=== PATIENT | male | born 1955 | race Caucasian/White ===

== ENCOUNTER → 2017-02-11 | Outpatient (CLI) | payer OTHER | END | disposition home or self-care (01) | LOC: RAD 08:04 | PROVIDERS: ATTEND Internal Medicine Cardiovascular Disease | DX: J90 Pleural effusion, not elsewhere classified (principal); I08.2 Rheumatic disorders of both aortic and tricuspid valves; E78.5 Hyperlipidemia, unspecified; I10 Essential (primary) hypertension; F17.200 Nicotine dependence, unspecified, uncomplicated; I73.9 Peripheral vascular disease, unspecified | CPT/HCPCS: 78452; 93017; 93306; A9502 ==

== ENCOUNTER 2017-04-13 05:27 | Day surgery (SDC) | payer OTHER ==
[~2017-04-13] VITALS: Ht 160 cm; Wt 65.7 kg
[2017-04-13] MEDS ORDERED: D5%-0.45% NACL 1,000 ML IV SCH (06:21)
[2017-04-13 06:50] LABS: BASOPHILS # (AUTO) 0.03 x10^3/uL (0-0.1); BASOPHILS % (AUTO) 1 % (0-1); EOSINOPHILS # (AUTO) 0.18 x10^3/uL (0-0.4); EOSINOPHILS % (AUTO) 3 % (1-7); LYMPHOCYTES # (AUTO) 1.45 x10^3/uL (1-3.4); LYMPHOCYTES % (AUTO) 22 % (22-44); MD NO; MEAN CORPUSCULAR HEMOGLOBIN 28.7 pg (27.5-34.5); MEAN CORPUSCULAR HGB CONC 32.7 g/dL (33.2-36.2); MEAN CORPUSCULAR VOLUME 87.7 fL (81-97); MEAN PLATELET VOLUME 8.5 fL (7.4-10.4); MONOCYTES # (AUTO) 0.53 x10^3/uL (0.2-0.8); MONOCYTES % (AUTO) 8 % (2-9); NEUTROPHILS # (AUTO) 4.47 x10^3/uL (1.8-6.8); NEUTROPHILS % (AUTO) 67 % (42-75); PLATELET COUNT 226 x10^3/uL (130-400); RED BLOOD COUNT 4.63 x10^6/uL (4.38-5.82); RED CELL DISTRIBUTION WIDTH 13.9 % (9.4-14.8)
[2017-04-13 06:52] VITALS: BP 145/86
[2017-04-13] MEDS ORDERED: DOXA8TAB63 PO (06:58)
[2017-04-13] MEDS ORDERED: AMLO10TA2 PO (06:58)
[2017-04-13] MEDS ORDERED: OMEP-110 PO (06:58)
[2017-04-13] MEDS ORDERED: LISI40TA PO (06:58)
[2017-04-13] MEDS ORDERED: ATOR10TA9 PO (06:58)
[2017-04-13] MEDS ORDERED: ASPI-650 PO (06:59)
[2017-04-13 07:01] LABS: ANION GAP 8 mmol/L (5-15); CALCIUM 8.4 mg/dL (8.5-10.1); CHLORIDE 111 mmol/L (98-107); CREATININE 0.91 mg/dL (0.7-1.3)
[2017-04-13] MEDS ORDERED: NITROGLYCERIN 5 MG/ML, 10ML ONE (07:15)
[2017-04-13] MEDS ORDERED: HEPARIN 1,000 UNITS/ML, 10ML ONE (07:15)
[2017-04-13] MEDS ORDERED: FLUMAZENIL 0.1 MG/1 ML, 5ML ONE (07:15)
[2017-04-13] MEDS ORDERED: FENTANYL PF 100 MCG/2ML ONE (07:15)
[2017-04-13] MEDS ORDERED: MIDAZOLAM 1 MG/ML, 2ML ONE (07:15)
[2017-04-13] MEDS ORDERED: PROTAMINE SULFATE 10 MG/ML, 25ML ONE (07:15)
[2017-04-13] MEDS ORDERED: NALOXONE 1 MG/ML, 2ML ONE (07:15)
[2017-04-13] MEDS ORDERED: LIDOCAINE 2%, 20ML ONE (07:59)
[2017-04-13] MEDS ORDERED: VISIPAQUE 270 MG/ML, 150ML BOTTLE ONE (13:30)
== END 2017-04-13 14:00 ==
LOC: OUT 05:27
DX: I70.213 Atherosclerosis of native arteries of extremities with intermittent claudication, bilateral legs (principal); E78.00 Pure hypercholesterolemia, unspecified; I10 Essential (primary) hypertension; E78.5 Hyperlipidemia, unspecified; F17.210 Nicotine dependence, cigarettes, uncomplicated
CPT/HCPCS: 36415; 37221; 75625; 75716; 80048; 85025; 99156; 99157; C1725; C1760; C1769; C1876; C1894; J1644; J2250; J3010; J3490; Q9966; J2720; J2310

== ENCOUNTER 2017-07-13 11:34 | Inpatient (IN) | payer OTHER ==
[~2017-07-13] VITALS: Ht 160 cm; Wt 63.1 kg
[~2017-07-13 11:34] MED LIST: AMLO10TA2 PO; ASPI-650 PO; ATOR10TA9 PO; DOXA8TAB63 PO; LISI40TA PO; OMEP-110 PO
[2017-07-13 13:05] LABS: BASOPHILS # (AUTO) 0.04 x10^3/uL (0-0.1); BASOPHILS % (AUTO) 1 % (0-1); EOSINOPHILS # (AUTO) 0.07 x10^3/uL (0-0.4); EOSINOPHILS % (AUTO) 1 % (1-7); LYMPHOCYTES # (AUTO) 1.34 x10^3/uL (1-3.4); LYMPHOCYTES % (AUTO) 19 % (22-44); MD NO; MEAN CORPUSCULAR HEMOGLOBIN 29.3 pg (27.5-34.5); MEAN CORPUSCULAR VOLUME 86.3 fL (81-97); MEAN PLATELET VOLUME 8.2 fL (7.4-10.4); MONOCYTES # (AUTO) 0.57 x10^3/uL (0.2-0.8); MONOCYTES % (AUTO) 8 % (2-9); NEUTROPHILS % (AUTO) 71 % (42-75); PLATELET COUNT 197 x10^3/uL (130-400); RED BLOOD COUNT 4.79 x10^6/uL (4.38-5.82); RED CELL DISTRIBUTION WIDTH 14.5 % (9.4-14.8)
[2017-07-13 13:18] LABS: ALBUMIN 3.7 g/dL (3.4-5.0); ANION GAP 9 mmol/L (5-15); CALCIUM 8.1 mg/dL (8.5-10.1); CHLORIDE 110 mmol/L (98-107); CREATININE 0.84 mg/dL (0.7-1.3)
[2017-07-13 13:23] LABS: TROPONIN I 0.391 ng/mL (0.000-0.045)
[2017-07-13] MEDS ORDERED: NITROGLYCERIN OINT 2%, 1GM TP ONE ×2 (13:37→14:00)
[2017-07-13] MEDS ORDERED: OMNIPAQUE 350 MG/ML, 100ML BOTTLE ONE (13:48)
[2017-07-13] MEDS ORDERED: ONDANSETRON ODT 4 MG PO PRN (14:30)
[2017-07-13] MEDS ORDERED: ONDANSETRON 2MG/ML, 2ML IVPush PRN (14:30)
[2017-07-13] MEDS ORDERED: LABETALOL 5MG/ML, 20ML IVPush PRN (14:30)
[2017-07-13] MEDS ORDERED: SODIUM CHLORIDE FLUSH 10ML SYR IVF PRN (14:30)
[2017-07-13] MEDS ORDERED: ENOXAPARIN 40 MG/0.4 ML SQ SCH (14:30)
[2017-07-13 15:05] VITALS: BP 160/87
[2017-07-13] MEDS ORDERED: ACETAMINOPHEN 325 MG TABLET ONE (16:11)
[2017-07-13] MEDS: ACETAMINOPHEN 325 MG TABLET PO PRN ×2 (16:13→21:00)
[2017-07-13 17:41] LABS: FREE T4 (FREE THYROXINE) 0.88 ng/dL (0.76-1.46)
[2017-07-13 18:52] VITALS: BP 124/71
[2017-07-13] MEDS ORDERED: HEPARIN 5,000 UNITS/ML, 1ML IV ONE (20:30)
[2017-07-13] MEDS ORDERED: HEPARIN 25,000 UNITS/500ML PMX 500 ML IV PRN (20:30)
[2017-07-13] MEDS ORDERED: HEPARIN 5,000 UNITS/ML, 1ML IV PRN (20:30)
[2017-07-13] MEDS ORDERED: ATORVASTATIN 10 MG TABLET PO SCH (21:00)
[2017-07-14 01:50] VITALS: BP 130/77
[2017-07-14] MEDS ORDERED: NITROGLYCERIN 0.4 MG BOTTLE (25 TABS) SL PRN (02:00)
[2017-07-14] MEDS ORDERED: NITROGLYCERIN 0.4 MG/SPRAY SL PRN (02:00)
[2017-07-14 03:33] LABS: BASOPHILS # (AUTO) 0.03 x10^3/uL (0-0.1); BASOPHILS % (AUTO) 0 % (0-1); EOSINOPHILS # (AUTO) 0.13 x10^3/uL (0-0.4); EOSINOPHILS % (AUTO) 1 % (1-7); LYMPHOCYTES # (AUTO) 1.73 x10^3/uL (1-3.4); LYMPHOCYTES % (AUTO) 18 % (22-44); MD NO; MEAN CORPUSCULAR HEMOGLOBIN 29.2 pg (27.5-34.5); MEAN CORPUSCULAR HGB CONC 33.5 g/dL (33.2-36.2); MEAN PLATELET VOLUME 8.7 fL (7.4-10.4); MONOCYTES # (AUTO) 0.69 x10^3/uL (0.2-0.8); MONOCYTES % (AUTO) 7 % (2-9); NEUTROPHILS % (AUTO) 74 % (42-75); PLATELET COUNT 193 x10^3/uL (130-400); RED BLOOD COUNT 4.71 x10^6/uL (4.38-5.82); RED CELL DISTRIBUTION WIDTH 15.2 % (9.4-14.8)
[2017-07-14 03:38] LABS: ALANINE AMINOTRANSFERASE 33 U/L (12-78); ALBUMIN 3.5 g/dL (3.4-5.0); ANION GAP 10 mmol/L (5-15); CALCIUM 8.3 mg/dL (8.5-10.1); CHLORIDE 108 mmol/L (98-107); CHOLESTEROL, TOTAL 154 mg/dL (140-239); TRIGLYCERIDES 87 mg/dL (50-200); VLDL CHOLESTEROL 17 mg/dL (0-25)
[2017-07-14 03:48] LABS: ALKALINE PHOSPHATASE 60 U/L (45-117); BILIRUBIN,TOTAL 0.4 mg/dL (0.2-1.0); CHOL/HDL RATIO 3.1; HDL CHOL % 32 % (26-37); HDL CHOLESTEROL (DIRECT) 49 mg/dL (40-60); LDL CHOLESTEROL,CALCULATED 88 mg/dL (54-169); LDL/HDL RATIO 1.8 (0.5-3.0); THYROID STIMULATING HORMONE 0.977 mIU/L (0.358-3.740); TOTAL PROTEIN 6.4 g/dL (6.4-8.2)
[2017-07-14 07:05] VITALS: BP 159/87
[2017-07-14] MEDS: ASPIRIN 325 MG TABLET EC PO SCH (08:57)
[2017-07-14] MEDS: ACETAMINOPHEN 325 MG TABLET PO PRN (08:58)
[2017-07-14] MEDS: OMEPRAZOLE 20 MG CAPSULE.DR PO SCH (08:58)
[2017-07-14] MEDS: SENNA/DOCUSATE TABLET PO SCH (08:58)
[2017-07-14] MEDS ORDERED: AMLODIPINE 5 MG TABLET PO SCH (09:00)
[2017-07-14] MEDS ORDERED: LISINOPRIL 20 MG TABLET PO SCH (09:00)
[2017-07-14] MEDS ORDERED: DOXAZOSIN 2MG TABLET PO SCH (09:00)
[2017-07-14] MEDS ORDERED: FENTANYL PF 100 MCG/2ML ONE (10:23)
[2017-07-14] MEDS ORDERED: MIDAZOLAM 1 MG/ML, 5ML ONE (10:24)
[2017-07-14] MEDS ORDERED: TICAGRELOR 90 MG TABLET ONE (10:24)
[2017-07-14] MEDS ORDERED: NITROGLYCERIN 5 MG/ML, 10ML ONE (10:24)
[2017-07-14] MEDS ORDERED: VERAPAMIL 2.5 MG/ML, 2ML ONE (10:24)
[2017-07-14] MEDS ORDERED: BIVALIRUDIN 250 MG ONE (10:24)
[2017-07-14] MEDS ORDERED: HEPARIN 1,000 UNITS/ML, 10ML ONE (10:24)
[2017-07-14] MEDS ORDERED: LIDOCAINE 2%, 2ML ONE (10:28)
[2017-07-14] MEDS ORDERED: DIPHENHYDRAMINE 50 MG/ML, 1ML ONE (10:48)
[2017-07-14] MEDS: SODIUM CHLORIDE 0.9% 1,000 ML IV SCH ×2 (12:00→19:15)
[2017-07-14] MEDS: MORPHINE SULFATE 4 MG/ML, 1ML IVPush PRN ×2 (13:22→23:11)
[2017-07-14 14:00] VITALS: BP 135/79
[2017-07-14] MEDS ORDERED: METOPROLOL TARTRATE 25 MG TABLET PO ONE (15:30)
[2017-07-14] MEDS ORDERED: INSULIN LISPRO 100 UNITS/ML, PEN SQ-INSULIN SCH (15:30)
[2017-07-14 15:50] LABS: BASOPHILS # (AUTO) 0.06 x10^3/uL (0-0.1); BASOPHILS % (AUTO) 1 % (0-1); EOSINOPHILS # (AUTO) 0.05 x10^3/uL (0-0.4); EOSINOPHILS % (AUTO) 1 % (1-7); LYMPHOCYTES % (AUTO) 14 % (22-44); MD NO; MEAN CORPUSCULAR HEMOGLOBIN 29.5 pg (27.5-34.5); MEAN CORPUSCULAR HGB CONC 34.1 g/dL (33.2-36.2); MEAN CORPUSCULAR VOLUME 86.5 fL (81-97); MEAN PLATELET VOLUME 8.1 fL (7.4-10.4); MONOCYTES % (AUTO) 8 % (2-9); NEUTROPHILS # (AUTO) 7.21 x10^3/uL (1.8-6.8); NEUTROPHILS % (AUTO) 77 % (42-75); PLATELET COUNT 193 x10^3/uL (130-400); RED BLOOD COUNT 4.78 x10^6/uL (4.38-5.82); RED CELL DISTRIBUTION WIDTH 14.6 % (9.4-14.8)
[2017-07-14 15:57] LABS: INTERNATIONAL NORMALIZED RATIO 0.94 (0.93-1.1); PROTHROMBIN TIME 9.8 Seconds (9.6-11.5)
[2017-07-14 16:01] LABS: ALANINE AMINOTRANSFERASE 35 U/L (12-78); ALBUMIN 3.5 g/dL (3.4-5.0); ANION GAP 10 mmol/L (5-15); CALCIUM 8.7 mg/dL (8.5-10.1); CHLORIDE 105 mmol/L (98-107); CREATININE 0.99 mg/dL (0.7-1.3)
[2017-07-14 16:04] LABS: ALKALINE PHOSPHATASE 68 U/L (45-117); BILIRUBIN,TOTAL 0.6 mg/dL (0.2-1.0); TOTAL PROTEIN 6.7 g/dL (6.4-8.2)
[2017-07-14 17:11] LABS: HEMOGLOBIN A1C 6.4 % (4.2-6.3)
[2017-07-14 19:01] VITALS: BP 117/76
[2017-07-14] MEDS: SODIUM CHLORIDE FLUSH 10ML SYR IVF SCH (21:00)
[2017-07-14] MEDS: MUPIROCIN OINT 2%, 22GM TP SCH (23:09)
[2017-07-14] MEDS: ATORVASTATIN 80 MG TABLET PO SCH (23:10)
[2017-07-14] MEDS: CHLORHEXIDINE 15 ML BOTTLE MM PRN (23:11)
[2017-07-15 00:38] VITALS: BP 118/73
[2017-07-15] MEDS: SODIUM CHLORIDE 0.9% 1,000 ML IV SCH ×3 (03:15→19:15)
[2017-07-15 05:20] LABS: MICROSCOPIC NOT IND
[2017-07-15 05:23] LABS: BASOPHILS # (AUTO) 0.07 x10^3/uL (0-0.1); BASOPHILS % (AUTO) 1 % (0-1); EOSINOPHILS # (AUTO) 0.06 x10^3/uL (0-0.4); EOSINOPHILS % (AUTO) 1 % (1-7); LYMPHOCYTES # (AUTO) 1.78 x10^3/uL (1-3.4); LYMPHOCYTES % (AUTO) 16 % (22-44); MD NO; MEAN CORPUSCULAR HEMOGLOBIN 29.2 pg (27.5-34.5); MEAN CORPUSCULAR HGB CONC 33.8 g/dL (33.2-36.2); MEAN CORPUSCULAR VOLUME 86.2 fL (81-97); MEAN PLATELET VOLUME 8.1 fL (7.4-10.4); MONOCYTES # (AUTO) 1.05 x10^3/uL (0.2-0.8); MONOCYTES % (AUTO) 10 % (2-9); NEUTROPHILS # (AUTO) 8.08 x10^3/uL (1.8-6.8); NEUTROPHILS % (AUTO) 73 % (42-75); PLATELET COUNT 184 x10^3/uL (130-400); RED BLOOD COUNT 4.82 x10^6/uL (4.38-5.82); RED CELL DISTRIBUTION WIDTH 14.7 % (9.4-14.8)
[2017-07-15 05:29] LABS: ALBUMIN 3.5 g/dL (3.4-5.0); ANION GAP 9 mmol/L (5-15); CALCIUM 8.8 mg/dL (8.5-10.1); CHLORIDE 104 mmol/L (98-107)
[2017-07-15 05:32] LABS: ALANINE AMINOTRANSFERASE 32 U/L (12-78); ALKALINE PHOSPHATASE 68 U/L (45-117); CREATININE 1.25 mg/dL (0.7-1.3)
[2017-07-15] MEDS ORDERED: METOPROLOL TARTRATE 25 MG TABLET PO ONE (06:00)
[2017-07-15] MEDS: CHLORHEXIDINE 15 ML BOTTLE MM PRN (06:07)
[2017-07-15] MEDS ORDERED: CEFUROXIME 1.5 GM in SODIUM CHLORIDE 0.9% 50 ML IVPB PRN (07:30)
[2017-07-15] MEDS ORDERED: PHENYLEPHRINE 10 MG in SODIUM CHLORIDE 0.9% 249 ML IV PRN ×2 (07:30→11:22)
[2017-07-15] MEDS ORDERED: EPINEPHRINE 2 MG in SODIUM CHLORIDE 0.9% 248 ML IV SCH (07:30)
[2017-07-15] MEDS ORDERED: POTASSIUM CHLORIDE 80 MEQ, SODIUM BICARBONATE 8.4% 10 MEQ, MAGNESIUM SULFATE 0.5 GM, LI... IV PRN (07:30)
[2017-07-15] MEDS ORDERED: VANCOMYCIN 900 MG in SODIUM CHLORIDE 0.9% 100 ML IVPB PRN (07:30)
[2017-07-15] MEDS ORDERED: DEXMEDETOMIDINE 200 MCG in SODIUM CHLORIDE 0.9% 48 ML IV SCH (07:30)
[2017-07-15] MEDS ORDERED: MANNITOL PMX 20% 500 ML IVPB PRN (07:30)
[2017-07-15] MEDS ORDERED: REGULAR INSULIN 62.5 UNITS in SODIUM CHLORIDE 0.9% 249.375 ML IV PRN ×2 (07:30→11:22)
[2017-07-15] MEDS ORDERED: HEPARIN 1,000 UNITS/ML, 10ML ONE (07:31)
[2017-07-15] MEDS ORDERED: PAPAVERINE 30 MG/ML, 2ML ONE (07:31)
[2017-07-15] MEDS ORDERED: MIDAZOLAM 10MG/2 ML ONE (07:34)
[2017-07-15] MEDS ORDERED: FENTANYL PF 250 MCG/5ML ONE ×4 (07:34→07:35)
[2017-07-15] MEDS ORDERED: CALCIUM CHLORIDE 10%, 10ML SYR ONE (07:35)
[2017-07-15] MEDS ORDERED: TRANEXAMIC ACID 100 MG/ML, 10ML ONE ×6 (07:35→07:38)
[2017-07-15] MEDS ORDERED: PHENYLEPHRINE 10 MG/ML ONE (07:35)
[2017-07-15] MEDS ORDERED: EPINEPHRINE 1 MG/ML, 1ML ONE (07:35)
[2017-07-15] MEDS ORDERED: ROCURONIUM 10MG/ML,5ML ONE ×2 (07:35→07:38)
[2017-07-15] MEDS ORDERED: PROPOFOL 10 MG/ML, 20ML ONE (07:35)
[2017-07-15] MEDS ORDERED: ALBUMIN HUMAN 5% 500 ML IV PRN (08:00)
[2017-07-15] MEDS: OMEPRAZOLE 20 MG CAPSULE.DR PO SCH (09:00)
[2017-07-15] MEDS: ASPIRIN 325 MG TABLET EC PO SCH (09:00)
[2017-07-15] MEDS: MUPIROCIN OINT 2%, 22GM TP SCH ×2 (09:00→21:22)
[2017-07-15] MEDS: SODIUM CHLORIDE FLUSH 10ML SYR IVF SCH ×3 (09:00→20:16)
[2017-07-15] MEDS: SENNA/DOCUSATE TABLET PO SCH (09:00)
[2017-07-15] MEDS: DOCUSATE 100 MG CAPSULE PO SCH ×2 (09:00→20:14)
[2017-07-15] MEDS ORDERED: PROTAMINE SULFATE 10 MG/ML, 25ML ONE (09:50)
[2017-07-15] MEDS ORDERED: LIDOCAINE 2% 100MG/5ML SYRINGE ONE (11:06)
[2017-07-15] MEDS ORDERED: HEPARIN 1,000 UNITS/ML, 30ML ONE (11:06)
[2017-07-15] MEDS ORDERED: SODIUM BICARB 8.4%, 50ML SYRINGE ONE (11:06)
[2017-07-15] MEDS ORDERED: ALBUMIN HUMAN 25% 50 ML ONE (11:07)
[2017-07-15] MEDS ORDERED: SODIUM CHLORIDE 0.9% 1,000 ML IV PRN (11:22)
[2017-07-15] MEDS ORDERED: NITROGLYCERIN/D5W PMX 250 ML IV PRN (11:22)
[2017-07-15] MEDS ORDERED: VASOPRESSIN 50 UNIT in SODIUM CHLORIDE 0.9% 250 ML IV PRN (11:22)
[2017-07-15] MEDS ORDERED: DOBUTAMINE 250 MG in SODIUM CHLORIDE 0.9% 230 ML IV PRN (11:22)
[2017-07-15] MEDS ORDERED: DEXMEDETOMIDINE 200 MCG in SODIUM CHLORIDE 0.9% 48 ML IV PRN (11:22)
[2017-07-15] MEDS ORDERED: MIDAZOLAM 1 MG/ML, 5ML IVPush PRN (11:30)
[2017-07-15] MEDS: KSCALE TO 4.5 IV SCH ×3 (11:30→23:19)
[2017-07-15] MEDS ORDERED: DEXTROSE 4 GM TAB.CHEW PO PRN (11:30)
[2017-07-15] MEDS ORDERED: INSULIN REGULAR 100 UNITS/ML, 3ML VIAL IVPush PRN (11:30)
[2017-07-15] MEDS ORDERED: PROCHLORPERAZINE 5 MG/ML, 2ML IVPush PRN (11:30)
[2017-07-15] MEDS ORDERED: BISACODYL 10 MG SUPP PR PRN (11:30)
[2017-07-15] MEDS ORDERED: BISACODYL 5 MG EC TABLET PO PRN (11:30)
[2017-07-15] MEDS ORDERED: DEXTROSE 50%, 50ML SYRINGE IVPush PRN (11:30)
[2017-07-15] MEDS ORDERED: SODIUM BICARB 8.4%, 50ML SYRINGE IV PRN (11:30)
[2017-07-15] MEDS ORDERED: GLUCAGON 1 MG IM PRN (11:30)
[2017-07-15] MEDS ORDERED: LACTATED RINGERS 1,000 ML IV PRN (11:30)
[2017-07-15] MEDS ORDERED: EPINEPHRINE 2 MG in SODIUM CHLORIDE 0.9% 248 ML IV PRN (11:30)
[2017-07-15] MEDS ORDERED: ACETAMINOPHEN 650 MG SUPP PR PRN (11:30)
[2017-07-15] MEDS ORDERED: ACETAMINOPHEN 325 MG TABLET PO PRN (11:30)
[2017-07-15] MEDS ORDERED: ONDANSETRON 2MG/ML, 2ML IVPush PRN (11:30)
[2017-07-15 11:56] LABS: GLUCOSE BY BLOOD GAS ANALYZER 147 mg/dL (70-110); HEMOGLOBIN BY BLOOD GAS ANALYZ 10.7 g/dL (14.0-18.0); POTASSIUM BY BLOOD GAS ANALYZR 3.8 mmol/L (3.6-5.5)
[2017-07-15] MEDS: morphine SULFATE 10 MG/ML, 1ML IVPush PRN ×3 (12:30→23:44)
[2017-07-15] MEDS ORDERED: POTASSIUM CHLORIDE PMX 100 ML IV ONE (12:30)
[2017-07-15] MEDS: MAGNESIUM SULFATE 1 GM in SODIUM CHLORIDE 0.9% 50 ML IVPB SCH (12:53)
[2017-07-15] MEDS ORDERED: INSULIN LISPRO 100 UNITS/ML, PEN SQ-INSULIN SCH (16:00)
[2017-07-15] MEDS ORDERED: INSULIN LISPRO 100 UNITS/ML, PEN SQ-INSULIN PRN (16:00)
[2017-07-15] MEDS: HYDROcodone/APAP 5/325 TABLET PO PRN ×2 (16:22→22:53)
[2017-07-15] MEDS: OXYcodone IR 5MG TABLET PO PRN ×2 (18:09→21:28)
[2017-07-15] MEDS ORDERED: VANCOMYCIN 1,000 MG in SODIUM CHLORIDE 0.9% 250 ML IVPB SCH (20:00)
[2017-07-15] MEDS: ATORVASTATIN 80 MG TABLET PO SCH (20:14)
[2017-07-15] MEDS: VANCOMYCIN PMX 1GM/200ML 200 ML IVPB SCH (20:15)
[2017-07-15] MEDS: MUPIROCIN OINT 2%, 22GM NAS SCH (21:00)
[2017-07-16] MEDS: morphine SULFATE 10 MG/ML, 1ML IVPush PRN ×2 (01:40→06:17)
[2017-07-16 03:36] VITALS: BP 99/72
[2017-07-16 05:23] LABS: BASOPHILS # (AUTO) 0.01 x10^3/uL (0-0.1); BASOPHILS % (AUTO) 0 % (0-1); CHLORIDE 108 mmol/L (98-107); EOSINOPHILS % (AUTO) 0 % (1-7); LYMPHOCYTES # (AUTO) 0.55 x10^3/uL (1-3.4); LYMPHOCYTES % (AUTO) 6 % (22-44); MD NO; MEAN CORPUSCULAR HEMOGLOBIN 29.5 pg (27.5-34.5); MEAN CORPUSCULAR VOLUME 86.8 fL (81-97); MEAN PLATELET VOLUME 8.4 fL (7.4-10.4); MONOCYTES # (AUTO) 0.96 x10^3/uL (0.2-0.8); MONOCYTES % (AUTO) 11 % (2-9); NEUTROPHILS # (AUTO) 7.66 x10^3/uL (1.8-6.8); NEUTROPHILS % (AUTO) 83 % (42-75); PLATELET COUNT 134 x10^3/uL (130-400); RED BLOOD COUNT 3.74 x10^6/uL (4.38-5.82); RED CELL DISTRIBUTION WIDTH 15.2 % (9.4-14.8)
[2017-07-16 05:25] LABS: INTERNATIONAL NORMALIZED RATIO 1.03 (0.93-1.1); PROTHROMBIN TIME 10.7 Seconds (9.6-11.5)
[2017-07-16] MEDS: KSCALE TO 4.5 IV SCH (05:30)
[2017-07-16 05:32] LABS: ALANINE AMINOTRANSFERASE 29 U/L (12-78); ALKALINE PHOSPHATASE 45 U/L (45-117); ANION GAP 9 mmol/L (5-15); BILIRUBIN,TOTAL 0.9 mg/dL (0.2-1.0); CALCIUM 7.4 mg/dL (8.5-10.1); CREATININE 0.96 mg/dL (0.7-1.3); TOTAL PROTEIN 5.8 g/dL (6.4-8.2)
[2017-07-16] MEDS ORDERED: FUROSEMIDE 20 MG/2 ML IV ONE (06:30)
[2017-07-16] MEDS: MUPIROCIN OINT 2%, 22GM NAS SCH ×2 (09:00→21:00)
[2017-07-16] MEDS: VANCOMYCIN PMX 1GM/200ML 200 ML IVPB SCH (09:04)
[2017-07-16] MEDS: SODIUM CHLORIDE FLUSH 10ML SYR IVF SCH ×5 (09:05→21:09)
[2017-07-16] MEDS: METOPROLOL TARTRATE 25 MG TABLET PO/NG SCH ×2 (09:07→21:07)
[2017-07-16] MEDS: DOCUSATE 100 MG CAPSULE PO SCH ×2 (09:07→21:07)
[2017-07-16] MEDS: ASPIRIN 81 MG TABLET EC PO SCH (09:07)
[2017-07-16] MEDS: OMEPRAZOLE 20 MG CAPSULE.DR PO SCH (09:07)
[2017-07-16] MEDS: SENNA/DOCUSATE TABLET PO SCH (09:09)
[2017-07-16] MEDS: OXYcodone IR 5MG TABLET PO PRN (12:05)
[2017-07-16] MEDS: MAGNESIUM SULFATE 1 GM in SODIUM CHLORIDE 0.9% 50 ML IVPB SCH (12:06)
[2017-07-16] MEDS: CHLORHEXIDINE 15 ML BOTTLE MM SCH ×2 (12:06→22:20)
[2017-07-16] MEDS: ACETAMINOPHEN 325 MG TABLET PO PRN ×3 (13:00→22:20)
[2017-07-16 20:30] VITALS: BP 106/67
[2017-07-16] MEDS: ATORVASTATIN 80 MG TABLET PO SCH (21:06)
[2017-07-17] VITALS (7 sets, daily range): BP systolic 96–137; BP diastolic 56–79
[2017-07-17 05:24] LABS: INTERNATIONAL NORMALIZED RATIO 0.97 (0.93-1.1); PROTHROMBIN TIME 10.1 Seconds (9.6-11.5)
[2017-07-17 05:27] LABS: ANION GAP 8 mmol/L (5-15); CALCIUM 7.7 mg/dL (8.5-10.1); CHLORIDE 97 mmol/L (98-107); CREATININE 0.87 mg/dL (0.7-1.3)
[2017-07-17] MEDS ORDERED: POTASSIUM CHLORIDE 10 MEQ TABLET.ER PO SCH (08:00)
[2017-07-17] MEDS: DOCUSATE 100 MG CAPSULE PO SCH ×2 (08:48→21:58)
[2017-07-17] MEDS: METOPROLOL TARTRATE 25 MG TABLET PO/NG SCH ×2 (08:48→21:59)
[2017-07-17] MEDS: SENNA/DOCUSATE TABLET PO SCH (08:49)
[2017-07-17] MEDS: OMEPRAZOLE 20 MG CAPSULE.DR PO SCH (08:49)
[2017-07-17] MEDS: DOXAZOSIN 2MG TABLET PO SCH (08:49)
[2017-07-17] MEDS: ASPIRIN 81 MG TABLET EC PO SCH (08:50)
[2017-07-17] MEDS: MUPIROCIN OINT 2%, 22GM NAS SCH ×2 (08:50→22:08)
[2017-07-17] MEDS: SODIUM CHLORIDE FLUSH 10ML SYR IVF SCH ×6 (08:51→22:08)
[2017-07-17] MEDS: ENOXAPARIN 40 MG/0.4 ML SQ SCH (08:51)
[2017-07-17] MEDS ORDERED: FUROSEMIDE 20 MG/2 ML IV SCH (09:00)
[2017-07-17] MEDS: GUAIFENESIN ER 600 MG TABLET PO SCH ×2 (10:04→21:58)
[2017-07-17] MEDS: MAGNESIUM SULFATE 1 GM in SODIUM CHLORIDE 0.9% 50 ML IVPB SCH (11:23)
[2017-07-17] MEDS: CHLORHEXIDINE 15 ML BOTTLE MM SCH ×2 (11:24→22:00)
[2017-07-17] MEDS: OXYcodone IR 5MG TABLET PO PRN ×2 (14:33→17:56)
[2017-07-17] MEDS: MAGNESIUM HYDROXIDE 8%, 30ML UDC PO PRN (14:33)
[2017-07-17] MEDS: ATORVASTATIN 80 MG TABLET PO SCH (21:58)
[2017-07-18 01:04] VITALS: BP 95/63
[2017-07-18 05:15] LABS: CHLORIDE 93 mmol/L (98-107)
[2017-07-18 05:36] LABS: ANION GAP 11 mmol/L (5-15); CALCIUM 8.2 mg/dL (8.5-10.1); CREATININE 1.23 mg/dL (0.7-1.3)
[2017-07-18 06:50] VITALS: BP 104/67
[2017-07-18] MEDS ORDERED: AMIODARONE 150 MG in DEXTROSE 5% 100 ML IV ONE (08:30)
[2017-07-18] MEDS ORDERED: FILTER 0.22 MICRON IV PRN (09:00)
[2017-07-18] MEDS: SODIUM CHLORIDE FLUSH 10ML SYR IVF SCH ×6 (09:00→20:21)
[2017-07-18] MEDS: AMIODARONE 450 MG in DEXTROSE 5% 241 ML IV PRN ×2 (09:22→16:53)
[2017-07-18] MEDS: SODIUM CHLORIDE 1 GM TABLET PO SCH ×3 (09:23→20:20)
[2017-07-18] MEDS: MUPIROCIN OINT 2%, 22GM NAS SCH ×2 (09:23→20:20)
[2017-07-18] MEDS: GUAIFENESIN ER 600 MG TABLET PO SCH ×2 (09:24→20:16)
[2017-07-18] MEDS: CLOPIDOGREL 75 MG TABLET PO SCH (09:24)
[2017-07-18] MEDS: DOXAZOSIN 2MG TABLET PO SCH (09:24)
[2017-07-18] MEDS: OMEPRAZOLE 20 MG CAPSULE.DR PO SCH (09:24)
[2017-07-18] MEDS: SENNA/DOCUSATE TABLET PO SCH (09:25)
[2017-07-18] MEDS: DOCUSATE 100 MG CAPSULE PO SCH ×2 (09:25→20:16)
[2017-07-18] MEDS: ASPIRIN 81 MG TABLET EC PO SCH (09:25)
[2017-07-18] MEDS: METOPROLOL TARTRATE 25 MG TABLET PO/NG SCH ×2 (11:03→20:17)
[2017-07-18] MEDS: ENOXAPARIN 40 MG/0.4 ML SQ SCH (11:04)
[2017-07-18 12:20] VITALS: BP 119/75
[2017-07-18] MEDS: MAGNESIUM HYDROXIDE 8%, 30ML UDC PO PRN (14:49)
[2017-07-18 19:03] VITALS: BP 116/69
[2017-07-18] MEDS: ATORVASTATIN 80 MG TABLET PO SCH (20:16)
[2017-07-18] MEDS: AMIODARONE 200 MG TABLET PO SCH (20:16)
[2017-07-19 01:38] VITALS: BP 94/53
[2017-07-19 05:45] LABS: ANION GAP 9 mmol/L (5-15); CALCIUM 7.5 mg/dL (8.5-10.1); CHLORIDE 97 mmol/L (98-107); CREATININE 0.91 mg/dL (0.7-1.3)
[2017-07-19] MEDS ORDERED: HYDROcodone/APAP 10/325 MG TABLET PO PRN (06:30)
[2017-07-19] MEDS: ACETAMINOPHEN 325 MG TABLET PO PRN ×2 (06:37→20:47)
[2017-07-19 06:45] VITALS: BP 117/76
[2017-07-19] MEDS: CLOPIDOGREL 75 MG TABLET PO SCH (08:34)
[2017-07-19] MEDS: MUPIROCIN OINT 2%, 22GM NAS SCH ×2 (08:34→20:47)
[2017-07-19] MEDS: SODIUM CHLORIDE 1 GM TABLET PO SCH ×3 (08:34→20:47)
[2017-07-19] MEDS: DOXAZOSIN 2MG TABLET PO SCH (08:34)
[2017-07-19] MEDS: GUAIFENESIN ER 600 MG TABLET PO SCH ×2 (08:34→20:47)
[2017-07-19] MEDS: ENOXAPARIN 40 MG/0.4 ML SQ SCH (08:34)
[2017-07-19] MEDS: ASPIRIN 81 MG TABLET EC PO SCH (08:35)
[2017-07-19] MEDS: SENNA/DOCUSATE TABLET PO SCH (08:35)
[2017-07-19] MEDS: AMIODARONE 200 MG TABLET PO SCH ×2 (08:35→20:47)
[2017-07-19] MEDS: DOCUSATE 100 MG CAPSULE PO SCH ×2 (08:35→20:47)
[2017-07-19] MEDS: METOPROLOL TARTRATE 25 MG TABLET PO/NG SCH ×2 (08:35→20:48)
[2017-07-19] MEDS: OMEPRAZOLE 20 MG CAPSULE.DR PO SCH (08:35)
[2017-07-19] MEDS: SODIUM CHLORIDE FLUSH 10ML SYR IVF SCH ×6 (08:36→20:54)
[2017-07-19] MEDS ORDERED: FUROSEMIDE 40 MG/4 ML IV ONE (09:30)
[2017-07-19 12:20] VITALS: BP 98/69
[2017-07-19 20:38] VITALS: BP 112/65
[2017-07-19] MEDS: ATORVASTATIN 80 MG TABLET PO SCH (20:47)
[2017-07-20 01:25] VITALS: BP 111/68
[2017-07-20 05:21] LABS: CHLORIDE 98 mmol/L (98-107)
[2017-07-20 05:32] LABS: ANION GAP 9 mmol/L (5-15); CALCIUM 8.1 mg/dL (8.5-10.1); CREATININE 0.92 mg/dL (0.7-1.3)
[2017-07-20 07:14] VITALS: BP 111/74
[2017-07-20] MEDS: SODIUM CHLORIDE FLUSH 10ML SYR IVF SCH ×6 (08:47→21:10)
[2017-07-20] MEDS: FUROSEMIDE 40 MG/4 ML IV SCH (08:47)
[2017-07-20] MEDS: MUPIROCIN OINT 2%, 22GM NAS SCH (08:48)
[2017-07-20] MEDS: DOCUSATE 100 MG CAPSULE PO SCH ×2 (08:49→21:00)
[2017-07-20] MEDS: ENOXAPARIN 40 MG/0.4 ML SQ SCH (08:49)
[2017-07-20] MEDS: SENNA/DOCUSATE TABLET PO SCH (08:49)
[2017-07-20] MEDS: ASPIRIN 81 MG TABLET EC PO SCH (09:00)
[2017-07-20] MEDS: GUAIFENESIN ER 600 MG TABLET PO SCH ×2 (12:20→21:09)
[2017-07-20] MEDS: SODIUM CHLORIDE 1 GM TABLET PO SCH ×3 (12:21→21:09)
[2017-07-20] MEDS: METOPROLOL TARTRATE 25 MG TABLET PO/NG SCH ×2 (12:21→21:10)
[2017-07-20] MEDS: DOXAZOSIN 2MG TABLET PO SCH (12:21)
[2017-07-20] MEDS: CLOPIDOGREL 75 MG TABLET PO SCH (12:21)
[2017-07-20] MEDS: OMEPRAZOLE 20 MG CAPSULE.DR PO SCH (12:21)
[2017-07-20] MEDS: AMIODARONE 200 MG TABLET PO SCH ×2 (12:21→21:09)
[2017-07-20 12:43] VITALS: BP 127/78
[2017-07-20] MEDS: ATORVASTATIN 80 MG TABLET PO SCH (21:09)
[2017-07-20 21:19] VITALS: BP 124/80
[2017-07-21 01:23] VITALS: BP_SYST 110; BP_SYST 94; BP_DIAS 61; BP_DIAS 68
[2017-07-21 06:00] LABS: CHLORIDE 97 mmol/L (98-107)
[2017-07-21 06:03] LABS: ANION GAP 10 mmol/L (5-15); CALCIUM 8.1 mg/dL (8.5-10.1); CREATININE 0.96 mg/dL (0.7-1.3)
[2017-07-21 07:05] VITALS: BP 134/79
[2017-07-21] MEDS ORDERED: ASPI-621 PO (07:51)
[2017-07-21] MEDS ORDERED: ATOR-2 PO (07:51)
[2017-07-21] MEDS ORDERED: POTA10TA5 PO (07:51)
[2017-07-21] MEDS ORDERED: AMIO400T5 PO (07:51)
[2017-07-21] MEDS ORDERED: CLOP75TA PO (07:51)
[2017-07-21] MEDS ORDERED: ACET325T14 PO (07:51)
[2017-07-21] MEDS ORDERED: METO25TA35 PO/NG (07:51)
[2017-07-21] MEDS ORDERED: FURO-93 PO (07:51)
[2017-07-21] MEDS: SODIUM CHLORIDE FLUSH 10ML SYR IVF SCH ×3 (09:00→09:58)
[2017-07-21] MEDS: SENNA/DOCUSATE TABLET PO SCH (09:00)
[2017-07-21] MEDS: DOCUSATE 100 MG CAPSULE PO SCH (09:00)
[2017-07-21] MEDS: AMIODARONE 200 MG TABLET PO SCH (09:58)
[2017-07-21] MEDS: SODIUM CHLORIDE 1 GM TABLET PO SCH (09:59)
[2017-07-21] MEDS: ASPIRIN 81 MG TABLET EC PO SCH (09:59)
[2017-07-21] MEDS: METOPROLOL TARTRATE 25 MG TABLET PO/NG SCH (09:59)
[2017-07-21] MEDS: DOXAZOSIN 2MG TABLET PO SCH (10:00)
[2017-07-21] MEDS: OMEPRAZOLE 20 MG CAPSULE.DR PO SCH (10:01)
[2017-07-21] MEDS: ENOXAPARIN 40 MG/0.4 ML SQ SCH (10:01)
[2017-07-21] MEDS: FUROSEMIDE 40 MG/4 ML IV SCH (10:10)
[2017-07-21] MEDS: CLOPIDOGREL 75 MG TABLET PO SCH (10:10)
[2017-07-21] MEDS: GUAIFENESIN ER 600 MG TABLET PO SCH (10:10)
== END 2017-07-21 13:34 | disposition home or self-care (01) | DRG 233 ==
LOC: ED 14:09 → EDIP 14:13 → 5SO 15:00 → CSU 07-15 08:42 → 5SO 07-16 21:01 → DCLOUNGE 07-21 13:19
PROVIDERS: ADMIT Hospitalist; ATTEND Hospitalist
PROC: 4A023N7 Measurement of Cardiac Sampling and Pressure, Left Heart, Percutaneous Approach (ICD-10-PCS; principal; 2017-07-14)
PROC: B2111ZZ Fluoroscopy of Multiple Coronary Arteries using Low Osmolar Contrast (ICD-10-PCS; 2017-07-14)
PROC: B2151ZZ Fluoroscopy of Left Heart using Low Osmolar Contrast (ICD-10-PCS; 2017-07-14)
PROC: 02100Z9 Bypass Coronary Artery, One Artery from Left Internal Mammary, Open Approach (ICD-10-PCS; 2017-07-15)
PROC: 021109W Bypass Coronary Artery, Two Arteries from Aorta with Autologous Venous Tissue, Open Approach (ICD-10-PCS; 2017-07-15)
PROC: 06BP4ZZ Excision of Right Saphenous Vein, Percutaneous Endoscopic Approach (ICD-10-PCS; 2017-07-15)
PROC: 5A1221Z Performance of Cardiac Output, Continuous (ICD-10-PCS; 2017-07-15)
PROC: B24BZZ4 Ultrasonography of Heart with Aorta, Transesophageal (ICD-10-PCS; 2017-07-15)
DX: I25.119 Atherosclerotic heart disease of native coronary artery with unspecified angina pectoris (principal); I21.4 Non-ST elevation (NSTEMI) myocardial infarction; I11.9 Hypertensive heart disease without heart failure; E87.1 Hypo-osmolality and hyponatremia; J98.11 Atelectasis; I73.9 Peripheral vascular disease, unspecified; D72.829 Elevated white blood cell count, unspecified; E78.00 Pure hypercholesterolemia, unspecified; E78.5 Hyperlipidemia, unspecified; F17.210 Nicotine dependence, cigarettes, uncomplicated; I48.0 Paroxysmal atrial fibrillation; N40.0 Benign prostatic hyperplasia without lower urinary tract symptoms; R68.84 Jaw pain; R73.03 Prediabetes; Z66 Do not resuscitate; Z79.82 Long term (current) use of aspirin; Z80.0 Family history of malignant neoplasm of digestive organs; Z80.3 Family history of malignant neoplasm of breast; Z82.3 Family history of stroke; Z82.49 Family history of ischemic heart disease and other diseases of the circulatory system; Z90.89 Acquired absence of other organs; Z79.899 Other long term (current) drug therapy
CPT/HCPCS: 36415; 36600; 70487; 71045; 71046; 80048; 80053; 80061; 81003; 82040; 82330; 82800; 82803; 82810; 82947; 82962; 83036; 83735; 84100; 84132; 84295; 84439; 84443; 84484; 85014; 85018; 85025; 85049; 85347; 85520; 85610; 85730; 86850; 86900; 86923; 87081; 93005; 93306; 93312; 93321; 93325; 93458; 93880; 93922; 93970; 94002; 99156; 99157; C1769; C1894; J0171; J0583; J0697; J1644; J1650; J1815; J1940; J2250; J2704; J2720; J3010; J3370; J3475; J3480; J3490; J7060; P9045; P9047; Q0162; Q9967; C1751; C1760; J0282; J1200; J2270; J2370; J2440; J7030; J7050

== ENCOUNTER → 2017-08-30 | Outpatient (CLI) | payer OTHER ==
[~2017-08-30] MED LIST changes: +ACET325T14 PO; +AMIO400T5 PO; +ASPI-621 PO; +ATOR-2 PO; +CLOP75TA PO; +FURO-93 PO; +METO25TA35 PO/NG; +POTA10TA5 PO
== END ==
LOC: CFH 14:32
PROVIDERS: ATTEND Thoracic Surgery (Cardiothoracic Vascular Surgery)
DX: R06.02 Shortness of breath (principal); Z95.1 Presence of aortocoronary bypass graft
CPT/HCPCS: 71046

== ENCOUNTER 2018-03-03 13:05 | Day surgery (SDC) | payer OTHER ==
[~2018-03-03] VITALS: Ht 160 cm; Wt 70.5 kg
[~2018-03-03 13:05] MED LIST changes: -AMLO10TA2 PO; +AMLO10TA6 PO; -ASPI-621 PO; +ASPI81TA45 PO
[2018-03-03] MEDS ORDERED: D5%-0.45% NACL 1,000 ML IV SCH (14:00)
[2018-03-03] MEDS ORDERED: LISI-170 PO (14:23)
[2018-03-03] MEDS ORDERED: DOXA8TAB63 PO (14:23)
[2018-03-03] MEDS ORDERED: ROSU10TA PO (14:23)
[2018-03-03] MEDS ORDERED: CLOP75TA52 PO (14:23)
[2018-03-03] MEDS ORDERED: METO25TA35 PO (14:23)
[2018-03-03] MEDS ORDERED: AMLO10TA6 PO (14:24)
[2018-03-03] MEDS ORDERED: ASPI-496 PO (14:24)
[2018-03-03 14:32] VITALS: BP 116/73
[2018-03-03 14:32] LABS: BASOPHILS # (AUTO) 0.02 x10^3/uL (0-0.1); BASOPHILS % (AUTO) 0 % (0-1); EOSINOPHILS % (AUTO) 2 % (1-7); LYMPHOCYTES # (AUTO) 1.76 x10^3/uL (1-3.4); LYMPHOCYTES % (AUTO) 30 % (22-44); MD NO; MEAN CORPUSCULAR HEMOGLOBIN 29.6 pg (27.5-34.5); MEAN CORPUSCULAR HGB CONC 33.3 g/dL (33.2-36.2); MEAN CORPUSCULAR VOLUME 89.1 fL (81-97); MEAN PLATELET VOLUME 8.7 fL (7.4-10.4); MONOCYTES # (AUTO) 0.53 x10^3/uL (0.2-0.8); MONOCYTES % (AUTO) 9 % (2-9); NEUTROPHILS # (AUTO) 3.44 x10^3/uL (1.8-6.8); NEUTROPHILS % (AUTO) 59 % (42-75); PLATELET COUNT 226 x10^3/uL (130-400); RED BLOOD COUNT 4.23 x10^6/uL (4.38-5.82); RED CELL DISTRIBUTION WIDTH 13.8 % (9.4-14.8)
[2018-03-03 14:33] LABS: ANION GAP 8 mmol/L (5-15); CALCIUM 8.1 mg/dL (8.5-10.1); CHLORIDE 110 mmol/L (98-107); CREATININE 0.99 mg/dL (0.7-1.3)
[2018-03-03] MEDS ORDERED: HEPARIN 1,000 UNITS/ML, 10ML ONE (15:30)
[2018-03-03] MEDS ORDERED: PROTAMINE SULFATE 10 MG/ML, 25ML ONE (15:30)
[2018-03-03] MEDS ORDERED: FENTANYL PF 100 MCG/2ML ONE (15:30)
[2018-03-03] MEDS ORDERED: FLUMAZENIL 0.1 MG/1 ML, 5ML ONE (15:30)
[2018-03-03] MEDS ORDERED: MIDAZOLAM 1 MG/ML, 5ML ONE (15:30)
[2018-03-03] MEDS ORDERED: VISIPAQUE 270 MG/ML, 50ML BOTTLE ONE (15:30)
[2018-03-03] MEDS ORDERED: NITROGLYCERIN 5 MG/ML, 10ML ONE (15:30)
[2018-03-03] MEDS ORDERED: NALOXONE 1 MG/ML, 2ML ONE (15:30)
[2018-03-03 19:00] VITALS: BP 116/76
[2018-03-03] MEDS ORDERED: HYDROcodone/APAP 5/325 TABLET PO PRN (20:00)
[2018-03-03] MEDS ORDERED: LACTATED RINGERS 1,000 ML IV SCH (20:00)
== END 2018-03-03 23:30 | disposition home or self-care (01) ==
LOC: OUT 13:05 → 4NOR 18:42 → OUT 23:30
DX: I70.213 Atherosclerosis of native arteries of extremities with intermittent claudication, bilateral legs (principal); I10 Essential (primary) hypertension; E78.5 Hyperlipidemia, unspecified; F17.210 Nicotine dependence, cigarettes, uncomplicated; Z98.890 Other specified postprocedural states; Z79.82 Long term (current) use of aspirin
CPT/HCPCS: 36415; 37221; 37252; 37253; 75630; 76937; 80048; 85025; 99156; 99157; C1725; C1751; C1753; C1760; C1769; C1874; C1894; J1644; J2250; J3010; Q9966; G0378; J2720; J2310

== ENCOUNTER → 2019-05-05 | Outpatient (CLI) | payer BC ==
[~2019-05-05] MED LIST changes: -AMLO10TA6 PO; +AMLO10TA8 PO; +ASPI-496 PO; +CLOP75TA52 PO; +LISI-170 PO; +METO25TA35 PO; +ROSU10TA2 PO
== END | disposition home or self-care (01) ==
LOC: CVU 06:45
PROVIDERS: ATTEND Internal Medicine Cardiovascular Disease
DX: I05.9 Rheumatic mitral valve disease, unspecified (principal); I10 Essential (primary) hypertension; Z95.1 Presence of aortocoronary bypass graft
CPT/HCPCS: 93306